=== PATIENT | female | born 1975 | race Caucasian/White ===

== ENCOUNTER 2024-04-30 21:09 | Emergency (ER) | payer OTHER, SELFPAY ==
[2024-04-30 21:16] VITALS: BP 148/89; PULSE 60; TEMP 36.7; O2SAT 96; BMI 30.1
--- NOTE | 2024-04-30 21:25 | XR_ITS ---
The [address] [address] Patient Name: ROSANGELA OVALLE MRN: [id number] date: 1975 Sex: F Assigned Patient Location: ED.MAIN Current Patient Location: Accession/Order Number: [id number] Exam Date: 04/30/2024 21:44 Report Date: 04/30/2024 23:54 At the request of: MARAH OSUNA Procedure: XR wrist LT min 3V EXAM: XR wrist LT min 3V HISTORY: cat bite COMPARISON: None. TECHNIQUE: 3 views of the left wrist. FINDINGS: Bones: No acute fracture or aggressive appearing bony lesion. No cortical erosion. Joints: Normal alignment. No significant osteoarthritic change. Soft tissues: Unremarkable. XR/XR wrist LT min 3V IMPRESSION: Unremarkable examination. No evidence of fracture. Electronically authenticated by: VANESA NICHOLS Date: 04/30/2024 23:54
--- NOTE | 2024-04-30 21:27 | ED_ITS ---
HPI - Animal Bite General Chief Complaint: Animal Bite Stated Complaint: CAT BITE Time Seen by Provider: 04/30/24 21:20 Source: patient Mode of arrival: walk-in Limitations: no limitations History of Present Illness HPI narrative: Patient is a 48-year-old female who brought to the emergency department with her family for evaluation of puncture wounds to the left wrist over the left distal radius. She is concerned because she has had 2 previous bites from this cat which were untreated and she developed blood poisoning . She and her family member at bedside are questioning if she should have a shot of antibiotics because she was bit 1 hour ago and they want to prevent infection. Last tetanus was 4 years ago. No other associated injuries. Patient is also concerned because she feels some tingling in her left thumb and index finger. Related Data Home Medications ?Medication ?Instructions ?Recorded ?Confirmed atenolol 25 mg tablet 25 mg PO DAILY 04/30/24 04/30/24 escitalopram oxalate 5 mg tablet 5 mg PO DAILY 04/30/24 04/30/24 (Lexapro) estradiol 1 mg tablet (Estrace) 1 mg PO DAILY 04/30/24 04/30/24 Previous Rx's ?Medication ?Instructions ?Recorded amoxicillin 875 mg-potassium 1 tab PO Q12H #20 tabs 04/30/24 clavulanate 125 mg tablet ketorolac 10 mg tablet 10 mg PO TID PRN pain #10 tabs 04/30/24 Allergies Allergy/AdvReac Type Severity Reaction Status Date / Time No Known Drug Allergies Allergy Verified 04/30/24 21:20 Review of Systems ROS Constitutional Denies: fever or chills Cardiovascular Denies: chest pain Respiratory Denies: shortness of breath Gastrointestinal Denies: nausea or vomiting Musculoskeletal Denies: back pain Integumentary/Breast Denies: rash Neurological Denies: numbness in extremities or weakness in extremities Hematologic/Lymphatic Denies: easy bruising or easy bleeding PFSH PFSH Social History Little interest or pleasure in doing things: not at all Feeling down, depressed, or hopeless: not at all Exam Narrative Exam Narrative: Gen.: Awake, alert, in no distress Head: Normocephalic, atraumatic ENT: Moist mucous membranes Respiratory: No respiratory distress Extremities: Moves extremities equally, 4 small puncture wounds noted that are superficial to the left wrist over the distal radius. Patient with normal range of motion in the fingers of the left hand, no swelling or bruising noted. No deep lacerations or active bleeding. Psych: Normal mood and affect Neuro: No focal neuro deficit Skin: Warm, dry Constitutional Vital Signs, click to edit/add: Last Vital Signs Temp 98.1 F 04/30/24 21:16 Pulse 60 04/30/24 21:16 Resp 16 04/30/24 21:16 BP 148/89 H 04/30/24 21:16 Pulse Ox 96 04/30/24 21:16 O2 Del Method Room Air 04/30/24 21:16 Course Vital Signs Vital signs: Vital Signs Temperature 98.1 F 04/30/24 21:16 Pulse Rate 60 04/30/24 21:16 Respiratory Rate 16 04/30/24 21:16 Blood Pressure 148/89 H 04/30/24 21:16 Pulse Oximetry 96 04/30/24 21:16 Oxygen Delivery Method Room Air 04/30/24 21:16 Temperature 98.1 F 04/30/24 21:16 Pulse Rate 60 04/30/24 21:16 Respiratory Rate 16 04/30/24 21:16 Blood Pressure 148/89 H 04/30/24 21:16 Pulse Oximetry 96 04/30/24 21:16 Oxygen Delivery Method Room Air 04/30/24 21:16 MDM - Animal Bite MDM Narrative Medical decision making narrative: X-rays obtained of the left wrist, tetanus is up-to-date. Patient started on Augmentin. She and her family were given education and reassurance as to why she does not need IM or IV antibiotics at this time as she was bitten 1 hour ago and there is no evidence of swelling or deep lacerations. NSAIDs and antibiotics given for home with topical antibiotic ointment. Patient is neurovascularly intact. Follow-up with primary care and return to the ER if symptoms change or worsen. SUPERVISED APC VISIT, PHYSICIAN ATTESTATION: Based on the medical record the care appears appropriate. ? Medical Records Attestation: I reviewed the patient's medical records. Discharge Plan Discharge Chief Complaint: Animal Bite Clinical Impression: Cat bite Patient Disposition: Home, Self-Care Time of Disposition Decision: 21:26 Condition: Good Prescriptions / Home Meds: New ketorolac 10 mg tablet 10 mg PO TID PRN (Reason: pain) Qty: 10 0RF amoxicillin-pot clavulanate 875-125 mg tablet 1 tab PO Q12H Qty: 20 0RF No Action estradiol [Estrace] 1 mg tablet 1 mg PO DAILY Rx Instructions: off 1 week; repeat cycle atenolol 25 mg tablet 25 mg PO DAILY escitalopram oxalate [Lexapro] 5 mg tablet 5 mg PO DAILY Print Language: Indonesian Instructions: Animal Bite (ED) Referrals: Physician,Non-Staff, MD [Primary Care Provider] - 1 week Discharge Date/Time: 04/30/24 22:23
--- NOTE | 2024-04-30 21:32 | PC.NURSE ---
this patient complains of a cat bite, on exam notice 4 puncture wounds to left wrist and no active bleeding or drainage at this time. this patient voices no other complaints and shows no signs of distress. I gave this patient a animal bite form to fill out.
[2024-04-30] MEDS: AMOXICILLIN/POT CLAV 875-125 MG TABLET 1 TAB PO (21:40)
[2024-04-30] MEDS: BACITRACIN OINTMENT 28.4 GM TUBE 1 APPLIC TOPICAL (21:41)
== END 2024-04-30 22:23 | disposition home or self-care (01) ==
PROVIDERS: Emergency Provider Internal Medicine
DX: S61.532A Puncture wound without foreign body of left wrist, initial encounter (principal); W55.01XA Bitten by cat, initial encounter
CPT/HCPCS: 73110; 99283

== ENCOUNTER 2025-04-05 23:50 | Emergency (ER) | payer OTHER, SELFPAY ==
[2025-04-05 23:56] VITALS: BP 136/72; PULSE 80; TEMP 36.7; O2SAT 98; BMI 31.6
--- OUTSIDE RECORDS SUMMARY | 2025-04-05 23:58 | XMS_ITS | CCD ---
Author [facility] Care Team Providers Care Accounting Instructor Name Role Phone TAHMINA MEYERS Attending Unavailable HENNA OCHOA Attending Unavailable CHERI KERR Primary Care Unavailable Cheri Kerr MD Primary Care Provider [phone] CHERI KERR Primary Care Unavailable SARAH MORALES Admitting Unavailabl e SARAH MORALES Attending Unavailabl e Unavailable Primary Care Provider Unavailabl e Medications Current Medications MedicationDrug Class(es)DatesSig (Normalized)Sig (Original)amoxicillin 875 mg / clavulanate 125 mg oral tablet (1 source)Penicillin-class AntibacterialStart: tablet, Oral, ONCE, 1 dose, On Mon04/30/24 at 2029, Antimicrobial Indications: Skin and Soft Tissue InfectionStart: tablet, Oral, ONCE, 1 dose, On Mon04/30/24 at 2029, Antimicrobial Indications: Skin and Soft Tissue Infectionbacitracin 0.5 unt/mg topical ointment (1 source)Start: 15-25-1507rwbsk 1 dose topically twice dailyTopical, 2 TIMES DAILY, First dose on Mon04/30/24 at 2100, Apply to wound.Start: 84-77-1162qphie 1 dose topically twice dailyTopical, 2 TIMES DAILY, First dose on Mon04/30/24 at 2100, Apply to wound.escitalopram 5 mg oral tablet (1 source)Serotonin Reuptake Inhibitortake 1 tablet by mouth once daily escitalopram (LEXAPRO) 5 MG tablet Take 1 tablet by mouth daily Active Problems Problem ClassificationProblemDateDocumented DateEpisodic/ChronicEssential hypertension (1 source)Essential hypertension; Translations: [Essential (primary) hypertension]26-40-5194GeorijsKwbrfnabgiwdp symptoms and ill-defined conditions (2 sources)Unspecified urinary incontinence; Translations: [Unspecified urinary incontinence]Onset: 66-93-6078AzluldnNrwjjipblrew (2 sources)Animal Bite; Translations: [Animal Bite]Onset: 04-30-2024 Vital Signs Date TimeVital SignValuePerforming XzkrxbniqIerlhoil01-94-0006 19:11-0500 Diastolic blood ozujdoxh60 mm[Hg]Sarah Morales MD Work Phone: [facility] [employer]11-19-2024 19:11-0500Systolic blood osbbidzl159 mm[Hg]Sarah Morales MD Work Phone: [facility] Lxzfsa50-02-7446 19:09-0500Body ojgjoafeiag36.2 [degF]Sarah Morales MD Work Phone: [facility] [employer]11-19-2024 19:09-0500Heart rate72 /minSarah Morales MD Work Phone: [facility] [employer]11-19-2024 19:09-0500 Respiratory rate18 /minSarah Morales MD Work Phone: [facility] Pgeypo15-32-9132 19:09-4796GwG9% (BldA) [Mass fraction]98 %Sarah Morales MD Work Phone: [facility] [employer] Encounters Encounter DateEncounter TypeCare ProviderFacilityStart: 04-30-2024 End: 26-30-2222Enptihdrw department patient visitPrmatt Morales MD Work Phone: [facility] EDStart: 04-15-2024 End: 77-93-7911Caecdn OnlyDale Dianne W[employer] Work Phone: [phone]-KWEU ATLASComment on above:Essential (primary) hypertensionStart: 01-15-2024 End: 48-09-4009ppwvynydgqHSVVHP Hi [facility] AmbulatoryStart: 12-08-2023 End: 62-51-2284uuvhgrgjcbEHRCSJ Caremn Atkins Available Plan of Treatment DateCare ActivityDetailAuthorStart: 04-15-2024 End: 12-14-7459Yvqxwggzzyiuu metabolic 2000 panel - Serum or PlasmaProMedica Work Phone: Comment on above:Expected: 04/15/2024, Expires: 04/15/2025Start: 53-18-6937Azijsnhxs vaccinationInfluenza VaccineProGenesis Hospital SystemStart: 69-67-1675Zhqwzavxy for malignant neoplasm of cervixPap SmearProPaulding County HospitalSailthru SystemStart: 04-08-4224LQuZ,Tdap and Td Vaccines (1 - Tdap)DTaP,Tdap and Td Vaccines (1 - Tdap)[facility] SystemStart: 64-96-9607Mzvry BMI ScreeningAdult BMI ScreeningProPaulding County HospitalSailthru SystemStart: 83-55-6614Tovfnyzckc ScreeningDepression ScreeningCleveland Clinic Lutheran HospitalSailthru SystemStart: 43-49-8640Mdzwmey ScreeningTobacco ScreeningHolden Memorial HospitalA2B [facility] End: 15-41-1306VZ Radius and Ulna - left 2 ViewsXR RADIUS ULNA LEFT (2 VIEWS) Imaging STAT Once for 1 Occurrences starting 04/30/2024 until 4Bon [facility] ArtsComment on above:Once for 1 Occurrences starting 04/30/2024 until 04/30/2024 End: 50-85-4491SR Wrist - left 3 ViewsXR WRIST LEFT (MIN 3 VIEWS) Imaging STAT Once for 1 Occurrences starting 04/30/2024 until 04/30/2024on [employer] Work Phone: Comment on above:Once for 1 Occurrences starting 04/30/2024 until 04/30/2024 Payers DatePayer CategoryPayerPolicy [id number] Managed Care - [employer] [id number] [id number] Social History DateTypeDetailFacilityTobacco smoking status NHISTobacco smoking consumption unknownProMobileOCT SystemStart: 80-12-1254Ako assigned at birthNot on file Edai SystemGender identityNot on fileHolden Memorial HospitalThink2tart: 28-40-4907NyyRbqxhr (finding)Edai System Progress note 01-15-2024 Note Date & TdllFensMmnrgamb82-82-3405 NoteAugust 2023 Gloria Alvarado [address] [place] [phone] Please find below the scientific management options for urinary frequency and urgency as well as incontinence that occurs before you can get to the bathroom: 1. Anticholinergic agents. This is uniformly covered by all insurance companies. Medication is taken daily and is very affordable. The success rate of medication is 62%. The foremost side effects are constipation, dry mouth and unfortunately memory issues if used long-term. 2. Beta 3 agonist. This is a new class of medications without the side effects of constipation, dry mouth or memory loss. They are not uniformly covered by insurance companies and can run upwards of $350 per month. Medications include option of Myrbetriq or Gemtesa. 3. Acupuncture. This is not currently covered by your insurance company. It is universally covered by Medicare. Acupuncture is provided at the level of the ankle once a week for 30 minutes. The success rate is 82% at 12 weeks of therapy. After 12 weeks, most patients will return once every 4 to 6 weeks to maintain effectiveness. 4. Bladder Botox injection. This is uniformly covered by all insurance. This typically administered under IV sedation in the operating room. Typical duration of effectiveness from the Botox ranges from 12-14 months. Side effects include difficulty in urinating due to over relaxed bladder. Botox does come in 3 separate doses. 5. Sacral neuromodulation. This is the only option which is considered a permanent solution, and is uniformly covered by all insurance. The science is very similar to acupuncture without the need for weekly visits. It represents a three-step process. Your insurance company requires you to perform a 3-day voiding diary recording everything that you eat drink and also the number of times you void with the amount voided. If you qualify through the questionnaire, you will have a temporary procedure to determine if you already 82% of patients will benefit from a permanent placement of a neuromodulator in your buttocks. This modulator is MRI compatible and rechargeable. As for urinary leakage when you cough and sneeze, your options include the followin) Periurethral Bulkamid injections (10-minute outpatient procedure that may need to be repeated every 2-3 years). 2) Smooth-Miguel Urethropexy (major abdominal surgery requiring 2 to 3 hours in operating room) 3) Pubovaginal sling (with Mesh or autologous fascia) outpatient surgery-40 minutes If you have any questions or concerns, please don't hesitate to call. Henna Ochoa MD AUTHENTICATED BY HENNA OCHOA, ON 01/21/2024 16:54:15[facility] Progress note 01-15-2024 Note Date & BarfKfqvCgujfqqx60-77-0683 NotePatient Name: Gloria Alvarado : 1975 Physicians: Cheri Kerr MD (Referring) Chief Complaint/Reason for Visit: Urinary incontinence History of Present Illness: Gloria Alvarado is a 48 y.o. G 2 P 3 female (s/p TVH for uterine prolapse) presents for evaluation of mixed urinary incontinence. She is accompanied by her . Patient reports lower urinary tract symptoms. She reports frequency and urgency. She denies straining. Patient states symptoms are of moderate severity. Onset of symptoms was several years ago and was gradual in onset. She has urine incontinence. She reports stress incontinence. She reports bothersome urgency incontinence. She wears 5 pads/day manifested as irritative symptoms including frequency, urgency. She reports a history of recurrent UTI. She denies flank pain, gross hematuria, and kidney stones. She has 1 bowel movements per day. She reports no bowel incontinence. History: Past Medical History: Diagnosis Date Abnormal ECG Heart murmur Abnormal Pap smear of cervix Anemia Had it as a child and of and on as an adult Hormone replacement therapy (postmenopausal) Estrogen Hypertension 03/2019 Migraine 09/13 Myocardial infarction (HCC) 03/2019 Mild Polycystic ovary syndrome Preeclampsia 08/13 Urinary tract infection Varicella Past Surgical History: Procedure Laterality Date CHOLECYSTECTOMY 03/2005 GYNECOLOGIC CRYOSURGERY HYSTERECTOMY (CERVIX REMOVED) 12/2006 LAPAROSCOPY Cyst removed off right ovary History reviewed. No pertinent family history. Social History Socioeconomic History Marital status: Tobacco Use Smoking status: Every Day Current packs/day: 1.00 Average packs/day: 1 pack/day for 10.0 years (10.0 ttl pk-yrs) Types: Cigarettes Smokeless tobacco: Never Substance and Sexual Activity Alcohol use: Not Currently Drug use: Never Sexual activity: Yes Partners: Male control/protection: Post-menopausal, Surgical Comment: Partial hysterectomy ovaries not removed Allergy Information: I have reviewed the patient's allergies. Patient has no known allergies. Home Medications: Outpatient Medications as of 01/15/2024 Medication Sig atenoloL (TENORMIN) 25 MG tablet Take 1 (one) tablet (25 mg total) by mouth daily . escitalopram oxalate (LEXAPRO) 10 MG tablet Take 1 (one) tablet (10 mg total) by mouth daily . estradioL (ESTRACE) 1 MG tablet Take 1 (one) tablet (1 mg total) by mouth daily . Review of Systems: Constitutional: Positive for malaise/fatigue and weight gain. Endocrine: Positive for polyuria. Skin: Positive for dry skin. Musculoskeletal: Positive for back pain and joint pain. Gastrointestinal: Positive for diarrhea. Genitourinary: Positive for bladder incontinence, flank pain, hesitancy, nocturia and urgency. All other systems reviewed and are negative Physical Examination: This visit will require a type of examination or procedure in which a trained stereo equipment salesperson will be available to enhance the patient's comfort, safety, privacy, security and/or dignity. The trained stereo equipment salesperson will training assistant a location where he or she can observe what is going on and assist as needed. Following the above discussion, patient Accepted stereo equipment salesperson for exam. Vital Signs: BP 113/75 Pulse 65 Wt 97.8 kg (215 lb 9.6 oz) BMI 42.11 kg/m GENERAL: Well appearing. No acute distress. EYES: No changes in vision, no blurry vision EARS, NOSE, MOUTH, THROAT: mucous memebranes moist, trachea midline CARDIOVASCULAR/PULMONARY: unlabored breathing without shortness of breath. ABDOMEN: Soft, nondistended, nontender. BACK: No CVA tenderness. MUSCULOSKELETAL: Normal gate, normal extremity ROM with no edema LYMPH: No cervical or supraclavicular lymphadenopathy PSYCHATRIC: A & O x3, mood and affect appropriate Pelvic Exam (chaperoned by Luis Fernando Nix RN): External genitalia appears normal. Urethral Meatus appears normal. Vaginal introitus has no discharge, no cystocele, no rectocele, no prolapse. On valsalva, she does not have stress urinary incontinence. DATA: Component Latest Ref Rng 01/15/2024 Glucose, UA Normal, Negative mg/dL Negative Bilirubin, UA Negative Negative Ketones, UA Negative mg/dL Negative Spec Grav, UA 1.005 - 1.025 1.015 Blood, UA Negative Negative pH, UA 5.0 - 7.0 6.0 Protein, UA Negative mg/dL Negative Urobilinogen, UA <2.0, 0.2, Normal, Negative, 1.0, 2.0, <1.0 mg/dL 0.2 Nitrite, UA Negative Negative WBC, UA Negative Negative Bladder scan post void residual (01/15/2024): 25 mL. Assessment and Plan/Recommendations: Gloria Alvarado is a 48 y.o. y/o female presenting with following medical issues: Stress urinary incontinence Urgency urinary incontinence A total of 46 minutes were spent reviewing pertinent medical notes from other providers as well as testing and labs in preparation for jfun-td-qihk visit with the patient today. Dur (more content not included)...[facility] Evaluation note Note Date & TypeNoteFacilityEvaluation note* Diagnosis Essential (primary) hypertension Unspecified essential hypertension documented in this encounter [facility] Instructions Note Date & TypeNoteFacilityInstructionsNot on filedocumented in this encounter [facility] Summary Purpose Family History No Family History Records FoundNo Family History Records FoundNo Family History Records Found Advance Directives No Advanced Directives Records FoundNo Advanced Directives Records FoundNo Advanced Directives Records Found Additional Source Comments INFORMATION SOURCE (unrecogn ized section and content) DATE CREATED AUTHOR 12/10/2023 [facility] EPIC DATE CREATED AUTHOR AUTHOR'S ORGANIZ ATION 01/22/[address] [facility] DATE CREATED AUTHOR AUTHOR'S ORGANIZ ATION 05/03/2024 [facility] Reason for Visit (unrecogniz ed section and content) ReasonCommentsAnimal BiteLeft arm bite from a home cat Scheduled Active and Recently Administ ered Medications (unrecognized section and content) Medication Order amoxicillin-clavulanate (AUGMENTIN) 875-125 MG per tablet 1 tablet 1 tablet, Oral, ONCE, 1 dose, On Mon04/30/24 at 2030, Antimicrobial Indications: Skin and Soft Tissue Infection * 2030 (Due) bacitracin zinc ointment Topical, 2 TIMES DAILY, First dose on Mon04/30/24 at 2100, Apply to wound. * 2100 (Due) Care Teams (unrecognized sec tion and content) Team MemberRelationshipSpecialtyStart DateEnd Date Cheri Kerr MD [address] [place] [address] PCP - GeneralFamily Dzqqhbzs56/19/24 FOR RECORDS PERTAINING TO PATIENTS WHO ARE OR HAVE BEEN ENROLLED IN A CHEMICAL DEPENDENCY/SUBSTANCEABUSE PROGRAM, SOME INFORMATION MAY BE OMITTED. This clinical summary was aggregated from multiple sources. Caution should be exercised in using it in the provision of clinical care. This summary normalizes information from multiple sources, and as a consequence, information in this document may materially change the coding, format and clinical context of patient data. In addition, data may be omitted in some cases. CLINICAL DECISIONS SHOULD BE BASED ON THE PRIMARY CLINICAL RECORDS. [facility]. provides no warranty or guarantee of the accuracy or completeness of information in this document.
--- OUTSIDE RECORDS SUMMARY | 2025-04-06 | XMS_ITS | Clinical Summary ---
Author Organization [facility] Healthcare Address [address] [place] [address] Care Team Providers Care Blending Plant Operator Name Role Phone Baljit Kerr MD Primary Care Provider [phone] Allergies No known active allergies Medications MedicationSigDispense QuantityRefillsLast FilledStart DateEnd DateStatus escitalopram (Lexapro) 10 MG tablet Take by mouth DailyActive atenolol (Tenormin) 25 MG tablet Take by mouth DailyActive estrogens, conjugated, (Premarin) 0.3 MG tablet Take 0.3 mg by mouth Daily Take daily for 21 days then do not take for 7 days. Active Active Problems No known active problems Social History Tobacco UseTypesPacks/DayYears UsedDateSmoking Tobacco: Every DayCigarettes Smokeless Tobacco: Never Tobacco Cessation:Ready to Q uit: Not Asked; Counseling Given: Not Answered CommentsUnknownSex and Gender InformationValueDate RecordedSex Assigned at BirthNot on fileLegal IbfOewmko43/10/2024 1:50 PM EDTGender IdentityNot on fileSexual OrientationNot on file Plan of Treatment Not on file Insurance Care Teams Team MemberRelationshipSpecialtyStart DateEnd Date Baljit Kerr MD [address] [place] [address] [facility]11/29/24
--- OUTSIDE RECORDS SUMMARY | 2025-04-06 | XMS_ITS | Clinical Summary ---
Author Organization [facility] Address [address] [place] [address] Care Team Providers Care Adobe Block Maker Name Role Phone Baljit Kerr MD Primary Care Provider [phone] Allergies No known active allergies Medications MedicationSigDispense QuantityRefillsLast FilledStart DateEnd DateStatus atenoloL (TENORMIN) 25 MG tablet Take 1 (one) tablet (25 mg total) by mouth daily .Active escitalopram oxalate (LEXAPRO) 10 MG tablet Take 1 (one) tablet (10 mg total) by mouth daily .Active estradioL (ESTRACE) 1 MG tablet Indications:Menopausal symptomsTake 1 (one) tablet (1 mg total) by mouth daily . 30 tablet /ctive Active Problems ProblemNoted DateDiagnosed DateFemale stress yjqumgszhols00/11/2024 Assessment & Plan (01/21/2024 4:42 PM EDT): Patient has persistent stress urinary incontinence despite Kegel exercises. She wishes to explore additional options. Today, we discussed the following options: 1) Periurethral Bulkamid injections 2) Smooth-Miguel Urethropexy 3) Pubovaginal sling (with Mesh or autologous fascia) We discussed the merits and potential complications of each option, and I answered her questions regarding the details of each option.. Following our discussion, she is undecided and will call with decision. Urge incontinence of urine01/21/2024 Assessment & Plan (01/21/2024 4:43 PM EDT): Patient's residual voiding symptoms include urinary frequency and urgency. Patient's bowel movements are daily. Thus we discussed the [place] [employer] guideline recommendations on therapy for OAB. I suggested behavioral therapy, and offered medical therapy in conjunction with use of either anticholinergic agents or beta 3 agonist. The merits and potential downsides of each 1 of these options are discussed with the patient. We also discussed 3rd line therapy using pre-tibial nervestimulation (PTNS), bladder BoTox or sacral nerve modulation (SNM). Following our discussion, patient will consider her options and will let us know about her choice of intervention. Encounters DateTypeDepartmentCare AaaqFmgtlzfvrtb27/24/2025Results Follow-Up Professionals for [facility] - [address] [address] Carolina Nassar MD MAMMOGRAM- DDHJDOLNQ84/13/2025Refill Professionals for [facility] - [address] [address] Carolina Nassar MD Menopausal symptomsfrom Last 3 Months Social History Tobacco UseTypesPacks/DayYears UsedDateSmoking Tobacco: Every RlzRnkiwjhxoo771 Smokeless Tobacco: Never Tobacco Cessation:Ready to Q uit: Not Asked; Counseling Given: Not Answered Alcohol UseStandard Drinks/WeekCommentsNot Currently0 (1 standard drink = 0.6 oz pure alcohol)CommentsNoSex and Gender InformationValueDate RecordedSex Assigned at BirthNot on fileLegal PciDdrukc78/08/2024 1:10 PM EDTGender Identity Not on fileSexual OrientationNot on file Last Filed Vital Signs Vital SignReadingTime TakenCommentsBlood Mxcjwewx917/75001/15/2024 2:35 PM EDT Hkryj008001/15/2024 2:35 PM EDTTemperature--Respiratory Rate--Oxygen Saturation-- Inhaled Oxygen Concentration--Nrxsiu72.8 kg (215 lb 9.6 oz)01/15/2024 2:35 PM XJCYbjwmo276.4 cm (5')01/15/2024 10:50 AM EDTBody Mass Index42.11001/15/2024 10:50 AM EDT Plan of Treatment Health MaintenanceDue DateLast DoneCommentsCT Dnztmjckjlbo21/29/1976Fecal DNA 1975Fecal occult blood test (FOBT,FIT)1975Flexible sigmoidoscopy 1975Tetanus: Every 10yrs (RETIRED)1975Depression Screening/Follow-Up (PHQ-2/9)1987HIV Keyxjlsgi83/29/1991Hepatitis C Zlqtkonvw48/29/1994 Pneumococcal Vaccine (1 of 2 - PCV)09/07/1994Wellness Visit/10/2023 COVID-19 Vaccine (1 - season)2025Influenza Vaccine (#1)2025 Dbdluaikj88/, 02/21/2024, 1632Jmwvksjbwcl52/10/2034 01/20/2024olorectal Cancer Screening/Kvynrkxgkg99/10/2034 Procedures Procedure NamePriorityDate/TimeAssociated DiagnosisCommentsMAMMOGRAM- SCREENING 02/28/2025 COLONOSCOPY SCAN01/20/2024 from Last 3 Months or Most Recently Relevant to Health Maintenance Results * MAMMOGRAM- SCREENING (02/28/2025)Specimen (Source)Anatomical Location / LateralityCollection Method / VolumeCollection TimeReceived Time02/28/2025 Narrative 02/28/2025 12:00 AM EDT Ordered by an unspecified provider. Authorizing ProviderResult TypeResult StatusProvider Not In SystemSCANNED ORDERS Final Result * COLONOSCOPY SCAN (01/20/2024)Specimen (Source)Anatomical Location / Laterality Collection Method / VolumeCollection TimeReceived Time01/20/2024 Narrative 01/20/2024 12:00 AM EDT Ordered by an unspecified provider. Authorizing ProviderResult TypeResult StatusProvider Not In SystemSCANNED ORDERS Final Result from Last 3 Months or Most Recently Relevant to Health Maintenance Insurance Care Teams Team MemberRelationshipSpecialtyStart DateEnd Date Baljit Kerr MD [address] [place] [address] PCP - GeneralFamily Medicine01/15/24
--- OUTSIDE RECORDS SUMMARY | 2025-04-06 | XMS_ITS | Clinical Summary ---
Author Organization [facility] Address [address], [address] [place] [address] Care Team Providers Care Blower Operator Name Role Phone Baljit Kerr MD Primary Care Provider [phone] Allergies No known active allergies Medications MedicationSigDispense QuantityRefillsLast FilledStart DateEnd DateStatus escitalopram (LEXAPRO) 5 MG tablet Take 1 tablet by mouth dailyActive Social History Tobacco UseTypesPacks/DayYears UsedDateSmoking Tobacco: Never Assessed CommentsUnknownSex and Gender InformationValueDate RecordedSex Assigned at Not on fileLegal TulUjubcn36/19/2024 7:05 PM ESTGender IdentityNot on fileSexual OrientationNot on file Last Filed Vital Signs Vital SignReadingTime TakenCommentsBlood Kpsskhur859/6204/30/2024 7:11 PM EST Yrrwt144704/30/2024 7:09 PM ENBOfnjqakzndw64.8 ??C (98.2 ??F)04/30/2024 7:09 PM ESTRespiratory Kaip623106/30/2023 7:09 PM ESTOxygen Raabsvljaa69%04/30/2024 7:09 PM ESTInhaled Oxygen Concentration--Weight--Height--Body Mass Index-- Plan of Treatment Health MaintenanceDue DateLast DoneCommentsDepression Cvjzba5309/08/1987HIV screen 09/07/1990Hepatitis C fbseka3609/07/1993DTaP/Tdap/Td vaccine (1 - Tdap)09/07/1994 Hepatitis B vaccine (1 of 3 - 19+ 3-dose series)09/07/1994Pap smear09/07/1996 Cervical cancer awwjga1509/07/2005HPV (without or with Pap)09/07/2005Lipids 09/08/20158428Atvuqjorfmr50/29/2021olorectal Cancer Nagwnt0009/07/2020FIT/FOBT: Average risk09/07/2020Fecal-DNA (Cologuard): Average risk09/07/2020 Sigmoidoscopy/CT awdnjqjfixgf82/29/2021Flu vaccine (#1)5COVID-19 Vaccine ( season)2025reast cancer vjwopv22 Hepatitis A vaccineAged OutNo longer eligible based on patient's age to complete this topicHib vaccineAged OutNo longer eligible based on patient's age to complete this topicMeningococcal (ACWY) vaccineAged OutNo longer eligible based on patient's age to complete this topicMeningococcal B vaccineAged OutNo longer eligible based on patient's age to complete this topicPneumococcal 0-49 years VaccineAged OutNo longer eligible based on patient's age to complete this topic Polio vaccineAged OutNo longer eligible based on patient's age to complete this topic Insurance * Guarantor: Frida Alvarado TypeRelation to PatientDate of BirthPhone Billing AddressPersonal/LqcxgjTuqy85/29/1976 [facility] [place] [address] Care Teams Team MemberRelationshipSpecialtyStart DateEnd Date Baljit Kerr MD [address] [place] [address] PCP - [facility]04/30/24
--- OUTSIDE RECORDS SUMMARY | 2025-04-06 | XMS_ITS | Clinical Summary ---
Author Organization [facility] tem Address [facility] [place] [place] [address] Care Team Providers Care Ignition Expert Name Role Phone Unavailable Primary Care Provider Unavailabl e Social History Tobacco UseTypesPacks/DayYears UsedDateSmoking Tobacco: Never Assessed CommentsUnknownSex and Gender InformationValueDate RecordedSex Assigned at Not on fileLegal TfsPtvnme55/31/2023 3:03 PM EDTGender IdentityNot on fileSexual OrientationNot on file Plan of Treatment Health MaintenanceDue DateLast DoneCommentsDepression Kijolcubw58/29/1988Tobacco Qyikwkygs35/29/1988Adult BMI Ijzlbrgvc96/29/1994DTaP,Tdap and Td Vaccines (1 - Tdap)09/07/1994Pap Smear09/07/1996Influenza Zraqcup0502/10/2025 Medical Devices Not on file Insurance
--- NOTE | 2025-04-06 00:17 | ED.ABDPAIN1 ---
HPI - Abdominal Pain General Chief Complaint: Abdominal Pain Stated Complaint: abd pain Time Seen by Provider: 04/06/25 00:03 Mode of arrival: ambulance History of Present Illness HPI narrative: abdominal pain since 4AM . did have episode of diarrhea but main complaint is abdominal pain and recurrent vomiting. Now vomiting bile. No fever. No chest pain or dyspnea. Past surgery includes cholecystectomy Related Data Home Medications ?Medication ?Instructions ?Recorded ?Confirmed atenolol 25 mg tablet 25 mg PO DAILY 04/30/24 04/06/25 escitalopram oxalate 5 mg tablet 5 mg PO DAILY 04/30/24 04/06/25 (Lexapro) estradiol 1 mg tablet (Estrace) 1 mg PO DAILY 04/30/24 04/06/25 Allergies Allergy/AdvReac Type Severity Reaction Status Date / Time promethazine (From Phenergan) AdvReac Intermediate Headache Verified 04/06/25 00:03 Review of Systems ROS Status of ROS 10 or more systems reviewed and unremarkable except as noted in history and below PFSH PFS Social History Little interest or pleasure in doing things: not at all Feeling down, depressed, or hopeless: not at all Exam Constitutional Vital Signs, click to edit/add: Last Vital Signs Temp 98.1 F 04/05/25 23:56 Pulse 80 04/06/25 03:45 Resp 14 04/06/25 03:45 BP 108/70 04/06/25 03:45 Pulse Ox 100 04/06/25 03:45 O2 Del Method Room Air 04/06/25 03:45 Common normals: no apparent distress, average body habitus, oriented x3, no limitations, healthy appearing, alert and well nourished [facility] Common normals: normocephalic and head/scalp atraumatic Eye Common normals: EOMs intact bilaterally and conjunctivae normal Respiratory Common normals: normal respiratory effort, no retractions, no use of accessory muscles and clear to auscultation bilaterally Cardio Common normals: regular rate, regular rhythm, S1 normal heart sound and S2 normal heart sound GI Common normals: Normal to inspection, nondistended, normoactive bowel sounds present and soft to palpation Other: RLQ tenderness Extremity Common normals: normal to inspection and full ROM Neuro Common normals: oriented x3, CN's II-XII intact bilaterally, moves all extremities and no focal motor deficits Psych Appearance: grossly normal Course Vital Signs Vital signs: Vital Signs Temperature 98.1 F 04/05/25 23:56 Pulse Rate 80 04/05/25 23:56 Respiratory Rate 16 04/05/25 23:56 Blood Pressure 136/72 04/05/25 23:56 Pulse Oximetry 98 04/05/25 23:56 Oxygen Delivery Method Room Air 04/05/25 23:56 Temperature 98.1 F 04/05/25 23:56 Pulse Rate 80 04/06/25 03:45 Respiratory Rate 14 04/06/25 03:45 Blood Pressure 108/70 04/06/25 03:45 Pulse Oximetry 100 04/06/25 03:45 Oxygen Delivery Method Room Air 04/06/25 03:45 MDM - Abdominal Pain MDM Narrative Medical decision making narrative: patient presents with complaint of abdominal pain and recurrent vomiting. Described bilious emesis. Exam with findings concerning for acute appendicitis. labs and diagnostic studies ordered along with IV hydration, antiemetic and pain medication CT returns with findings of acute appendicitis without perforation. WBC elevated with left shift. Discussed with patient and her family and they prefer to go to [place] and Not [place]. Discussed with Gen Surgery at [facility] [place] and ER physician as well and patient accepted in transfer. IVPB Zosyn ordered. Lab Data Labs: Lab Results 04/06/25 04/06/25 Range/Units 00:12 02:50 WBC 22.1 H (4.0-11.0) 10^3/uL RBC 4.48 (4.20-5.40) 10^6/uL Hgb 13.8 (12.0-16.0) g/dL Hct 40.7 (36.0-48.0) % MCV 90.8 (81.0-99.0) fL MCH 30.8 (26.7-34.0) pg MCHC 33.9 (29.9-35.2) g/dL RDW 12.7 (11.0-15.0) % Plt Count 257 (150-450) 10^3/uL MPV 11.2 (9.5-13.5) fL Neut % (Auto) 84.0 H (43.0-75.0) % Lymph % (Auto) 9.2 L (20.5-60.0) % [place] % (Auto) 6.2 (1.7-12.0) % Eos % (Auto) 0.0 L (0.9-7.0) % Baso % (Auto) 0.2 (0.2-2.0) % Neut # (Auto) 18.6 H (1.4-6.5) 10^3/uL Lymph # (Auto) 2.0 (1.2-3.8) 10^3/uL [place] # (Auto) 1.4 H (0.3-0.8) 10^3/uL Eos # (Auto) 0.0 (0.0-0.7) 10^3/uL Baso # (Auto) 0.1 (0.0-0.1) 10^3/uL Abs Immat Gran (auto) 0.08 H (0.00-0.03) 10^3/uL Imm/Tot Granulo (auto) 0.4 (0.0-0.5) % Sodium 139 (136-145) mmol/L Potassium 4.0 (3.5-5.1) mmol/L Chloride 104 (98-107) mmol/L Carbon Dioxide 28.6 (21.0-32.0) mmol/L Anion Gap 10.4 BUN 12.0 (7.0-18.0) mg/dL Creatinine 0.63 (0.55-1.02) mg/dL Est GFR ( Amer) >60 (>=60 mL/min/1.73m^2) Est GFR (Non-Af Amer) >60 (>=60 mL/min/1.73m^2) BUN/Creatinine Ratio 19.0 Glucose 108 H (74-106) mg/dL Lactate 1.5 (0.4-2.0) mmol/L Calcium 8.2 L (8.5-10.1) mg/dL Total Bilirubin 0.9 (0.2-1.0) mg/dL AST 19 (15-37) U/L ALT 30 (14-59) U/L Alkaline Phosphatase 100 (46-116) U/L Troponin I High Sens <4.0 L (4.0-51.3) pg/mL Total Protein 6.7 (6.4-8.2) g/dL Albumin 3.4 (3.4-5.0) g/dL Globulin 3.3 g/dL Albumin/Globulin Ratio 1.0 Lipase 28.0 (16.0-77.0) U/L Urine Color Yellow (YELLOW) Urine Clarity Clear (CLEAR) Urine pH 5.5 (5.0-9.0) Ur Specific [place] <=1.005 A (1.005-1.025) Urine Protein Negative (NEG/TRACE) mg/dL Urine Glucose (UA) Negative (NEGATIVE) mg/dL Urine Ketones Negative (NEGATIVE) mg/dL Urine Occult Blood Negative (NEGATIVE) Urine Nitrite Negative (NEGATIVE) Urine Bilirubin Negative (NEGATIVE) Urine Urobilinogen 0.2 (0.2-1.0) EU/dL Ur Leukocyte Esterase Negative (NEGATIVE) Urine RBC 0-2 (0-2) #/HPF Urine WBC 0-2 A (NONE SEEN) #/HPF Ur Squamous Epith Cells Rare (NONE/RARE) #/LPF Urine Crystals None seen (None Seen) #/HPF Urine Bacteria Trace A (NONE SEEN) #/HPF Urine Casts None seen (NONE SEEN) #/LPF Urine Mucus Trace A (NONE SEEN) Ur Culture Indicated? No Discharge Plan Discharge Chief Complaint: Abdominal Pain Clinical Impression: Acute appendicitis Patient Disposition: [facility]
[2025-04-06] MEDS: 0.9 % SODIUM CHLORIDE 1,000 ML 999 ML IV ×2 (00:20→04:50)
[2025-04-06] MEDS: FENTANYL CITRATE/PF 100 MCG/2 ML VIAL 50 MCG IV (00:20)
[2025-04-06 00:31] LABS: Hematocrit 40.7 % (36.0-48.0); Hemoglobin 13.8 g/dL (12.0-16.0); Immature Granulocytes Abs Auto 0.08 10^3/uL (0.00-0.03); Immature Granulocytes Pct Auto 0.4 % (0.0-0.5); Lymphocytes Absolute Auto 2.0 10^3/uL (1.2-3.8); Mean Corpuscular HGB Conc 33.9 g/dL (29.9-35.2); Mean Corpuscular Hemoglobin 30.8 pg (26.7-34.0); Mean Corpuscular Volume 90.8 fL (81.0-99.0); Platelet Count 257 10^3/uL (150-450); Red Blood Count 4.48 10^6/uL (4.20-5.40); White Blood Count 22.1 10^3/uL (4.0-11.0)
[2025-04-06 00:44] LABS: Lactate/Lactic Acid 1.5 mmol/L (0.4-2.0)
[2025-04-06 00:45] LABS: Alanine Aminotransferase 30 U/L (14-59); Albumin Globulin Ratio 1.0; Albumin Level 3.4 g/dL (3.4-5.0); Alkaline Phosphatase 100 U/L (46-116); Anion Gap 10.4; Aspartate Amino Transferase 19 U/L (15-37); Blood Urea Nitrogen 12.0 mg/dL (7.0-18.0); Calcium 8.2 mg/dL (8.5-10.1); Carbon Dioxide 28.6 mmol/L (21.0-32.0); Chloride 104 mmol/L (98-107); Estimated GFR (African America >60 (>=60 mL/min/1.73m^2); Estimated GFR (Non-African Ame >60 (>=60 mL/min/1.73m^2); Globulin 3.3 g/dL; Glucose 108 mg/dL (74-106); Lipase 28.0 U/L (16.0-77.0); Potassium 4.0 mmol/L (3.5-5.1); Sodium 139 mmol/L (136-145); Total Protein 6.7 g/dL (6.4-8.2)
[2025-04-06] MEDS: FENTANYL CITRATE/PF 100 MCG/2 ML VIAL IV ×4 (01:32→06:05)
[2025-04-06 03:00] LABS: Glucose Urine UA NEGATIVE (NEGATIVE)
[2025-04-06 03:09] LABS: Cast Seen? NONE SEEN #/LPF (NONE SEEN); Crystals Seen? None Seen #/HPF (None Seen); Urine Culture Indicated NO
[2025-04-06 03:45] VITALS: BP 108/70; PULSE 80; O2SAT 100
[2025-04-06] MEDS: PIPERACILLIN SODIUM/TAZOBACTAM 3.375 GM in 0.9 % SODIUM CHLORIDE 50 ML IV (04:50)
[2025-04-06 05:46] VITALS: BP 122/89; PULSE 85; O2SAT 95
[2025-04-06 06:05] VITALS: TEMP 37.1
== END 2025-04-06 06:00 | disposition short-term general hospital (02) ==
PROVIDERS: Emergency Provider Internal Medicine; PCP Family Medicine
DX: K35.80 Unspecified acute appendicitis (principal); Z90.49 Acquired absence of other specified parts of digestive tract; Z90.710 Acquired absence of both cervix and uterus
CPT/HCPCS: 36415; 74177; 80053; 81001; 83605; 83690; 84484; 85025; 96361; 96374; 96375; 96376; 99285; J2405; J2543; J3010; Q9967